=== PATIENT | male | born 1960 | race Caucasian/White ===

== ENCOUNTER 2023-12-23 09:43 | Day surgery (SDC) | payer OTHER, SELFPAY ==
[2023-12-21 12:49] VITALS: BMI 47.8
--- OUTSIDE RECORDS SUMMARY | 2023-12-23 09:46 | XMS_ITS | Continuity of Care Document ---
Author Organization [facility] Address [address] [place] [address]- Care Team Providers Care Medical Technologist Name Role Phone Leigh CYR, Ramón Maki Primary Care Physician [facility]counter [facility] Date(s): 05/19/23 - 06/18/23 [facility] [address] [place] [id number] Allergies, Adverse Reactions, Alerts No Known Allergies Immunizations Given and Recorded Vaccine Date Status Refusal Reason pneumococcal 20-valent conjugate vaccine 09/16/22 Given [id number] bivalent booster vax 08/18/22 Recorded influenza virus vaccine, inactivated 05/16/22 Raz rded influenza virus vaccine, inactivated 06/28/21 Raz rded SARS-CoV-2 (COVID-19) mRNA-1273 vaccine 07/16/21 R ecorded SARS-CoV-2 (COVID-19) mRNA BNT-162b2 vac 12/12/20 Recorded SARS-CoV-2 (COVID-19) mRNA BNT-162b2 vac 11/21/20 Recorded Influenza Virus Vaccine (oldterm) 06/23/20 Recorde d Influenza Virus Vaccine (oldterm) 05/26/20 Recorde d Influenza Virus Vaccine (oldterm) 05/25/20 Recorde d zoster vaccine, inactivated 05/26/20 Recorded zoster vaccine, inactivated 02/27/20 Recorded Medications amLODIPine 5 mg oral tablet 5 mg, 1, tablet, By Mouth, Daily, # 90 tablet, Refills 3, Tot. Refills 3, Maintenance, 07/14/22 10:17:00 EST, Route to Pharmacy Electronically, [facility]/pharmacy #[id number], Partial fill upon patient request if the prescription is for a schedule II opioid drug.... Start Date: 07/14/22 Status: Ordered atorvastatin 20 mg oral tablet 1 tablet, By Mouth, Daily, # 90 tablet, 3 Refills, 07/14/22 10:24:00 EST, [facility]/pharmacy #1234, 165, cm, 07/09/22 16:06:00 EST, Height, 143, kg, 01/06/21 17:45:00 EDT, Dry Weight Start Date: 07/14/22 Status: Ordered chlorthalidone 25 mg oral tablet 12.5 mg, 0.5, tablet, By Mouth, Daily, new dose/will call when needed, # 45 tablet, Refills 3, Tot.Refills 3, Maintenance, 05/15/23 15:39:00 EDT, Route to Pharmacy Electronically, [facility]/pharmacy #1234, 165, cm, 05/15/23 15:26:00 EDT, Height Start Date: 05/15/23 Status: Ordered Klor-Con M20 20 mEq oral tablet, extended release 2 tablet, By Mouth, Daily, will call, # 180 tablet, 3 Refills, 07/14/22 10:24:00 EST, [facility]/pharmacy #1234, 165, cm, 07/09/22 16:06:00 EST, Height, 143, kg, 01/06/21 17:45:00 EDT, Dry Weight Start Date: 07/14/22 Status: Ordered losartan 50 mg oral tablet 2 tablet = 100 mg, By Mouth, Daily, # 180 tablet, 3 Refills, Maintenance, 07/14/22 10:18:00 EST, [facility]/pharmacy #1234, Partial fill upon patient request if the prescription is for a schedule II opioid drug., 165, cm, 07/09/22 16:06:00 EST, Height, 143,... Start Date: 07/14/22 Status: Ordered metFORMIN 500 mg oral tablet, extended release 2 tablet = 1,000 mg, By Mouth, Daily, new dose/will call when needed, # 180 tablet, 3 Refills, Maintenance, 05/15/23 15:38:00 EDT, [facility]/pharmacy #1234, Partial fill upon patient request if the prescription is for a schedule II opioid drug., 165, cm, 10... Start Date: 05/15/23 Stop Date: 05/09/24 Status: Ordered omeprazole 40 mg oral enteric coated capsule 1 capsule = 40 mg, By Mouth, Daily, # 90 capsule, 3 Refills, Maintenance, 07/14/22 10:31:00 GT, Tabitha [facility]/pharmacy #1234, Partial fill upon patient request if the prescription is for a schedule II opioid drug., 165, cm, 07/09/22 16:06:00 EST, H... Start Date: 07/14/22 Status: Ordered Problem List Condition Confirmation Course Effective Dates Status Health Status Informant Benign essential hypertension Confirmed Active Diplopia Confirmed Active Pedal edema Confirmed Active GERD (gastroesophageal reflux disease) Confirmed Active Hypercholesterolemia Confirmed Active Obesity Confirmed Active Onychomycosis of toenails Confirmed Active Prediabetes Confirmed Active Detached retina Confirmed Active Right flank pain Confirmed Active Severe obesity Confirmed Active Steatosis of liver Confirmed Active Type 2 diabetes mellitus Confirmed Active Social History Social History Type Response Smoking Status Never smoker entered on: 07/18/15 Sex Patient Care team information Care Team Personnel Name: Leigh CYR, Ramón Maki Position: S Physician - Primary Care Member Role: PCP Address: Address: [address] [place] [address] [place] [address]- Care Team Related Persons Name: ADAN BRISCOE Address: [place] [address] [place] [address] Name: ADAN PILLAI Address: [address] [address] [address] [place] [address] Name: TAWANA PILLAI Address: [place] [address]
--- OUTSIDE RECORDS SUMMARY | 2023-12-23 09:46 | XMS_ITS | Continuity of Care Document ---
Author Organization [facility] ter Address [address] [place] [address]- Care Team Providers Care Bioinformatics Research Technician Name Role Phone Ramón Abraham MD Primary Care Physician Encounter [facility] [place] Date(s): 09/29/19 - 09/29/[address] [address]- [facility] Attending Physician: Ramón Abraham MD Allergies, Adverse Reactions, Alerts Substance Reaction Severity Status NKA Active Medications amLODIPine 2.5 mg oral tablet See Instructions, # 90 tablet, Refills 3 Tot. Refills 3, TAKE 1 TABLET BY MOUTH EVERYDAY AT BEDTIME, [facility]/pharmacy #[id number] Start Date: 04/27/19 Status: Ordered atorvastatin 20 mg oral tablet 1 tablet = 20 mg, By Mouth, Daily, # 90 tablet, 3 Refills, Maintenance, 08/03/19 15:50:00 EST, Tablet, [facility] #1234, 191, cm, 06/08/19 9:08:00 EDT, Height, 143, kg, 06/03/19 21:01:00 EDT, Dry Weight Start Date: 08/03/19 Status: Ordered Bactrim DS 800 mg-160 mg oral tablet 2 tablet, By Mouth, Every 12 hours, # 28 tablet, 0 Refills, Maintenance, 09/20/19 9:24:00 EST, [facility], 2 tablet By Mouth Every 12 hours, 191, cm, 09/20/19 9:02:00 EST, Height, 143, kg, 06/03/19 21:01:00 EDT, Dry Weight Start Date: 09/20/19 Status: Ordered cephalexin monohydrate 500 mg oral capsule 1 capsule = 500 mg, By Mouth, 4 times a day, # 28 capsule, 0 Refills, Maintenance, 09/20/19 9:25:00EST, [facility]/pharmacy #1234, 191, cm, 09/20/19 9:02:00 EST, Height, 143, kg, 06/03/19 21:01:00 EDT, DryWeight Start Date: 09/20/19 Status: Ordered chlorthalidone 25 mg oral tablet 25 mg, 1, tablet, By Mouth, Daily, # 90 tablet, Refills 0, Tot. Refills 0, Maintenance, 08/02/19 14:55:00 EST, Route to Pharmacy Electronically, [facility]/pharmacy #1234, 191, cm, 06/08/19 9:08:00 EDT, Height, 143, kg, 06/03/19 21:01:00 EDT, Dry Weight Start Date: 08/02/19 Status: Ordered doxycycline hyclate 100 mg oral capsule 1 capsule = 100 mg, By Mouth, 2 times a day, for 10 days, with food and probiotic, # 20 capsule, 0 Refills, Acute 10/04/19 13:14:00 EST, 09/24/19 13:14:00 EST, [facility]/pharmacy #1234, 191, cm, 09/21/19 12:10:00 EST, Height, 143, kg, 06/03/19 21:01:00 EDT,... Start Date: 09/24/19 Stop Date: 10/04/19 Status: Ordered losartan 100 mg oral tablet See Instructions, # 90 tablet, Refills 3 Tot. Refills 3, TAKE 1 TABLET DAILY., [facility]/pharmacy #1234 Start Date: 04/27/19 Status: Ordered Lotrimin AF 1% topical cream See Instructions, Topically 2 times a day entire undersurface and between toes of both feet, # 113 Gm, 1 Refills, Maintenance, 09/21/19 12:20:00 EST, [facility], Topically 2 times a day entire undersurface and between toes of both feet, 191, c... Start Date: 09/21/19 Status: Ordered omeprazole 20 mg oral enteric coated capsule 1 capsule = 20 mg, By Mouth, Daily, # 90 tablet, 3 Refills, Maintenance, 06/08/19 9:40:47 EDT, EC Capsule Start Date: 06/08/19 Status: Ordered omeprazole 40 mg oral enteric coated capsule 1 capsule = 40 mg, By Mouth, Daily, # 90 capsule, 0 Refills, Maintenance, 08/12/19 16:34:00 EST, ECCapsule, [facility], 191, cm, 08/12/19 15:49:00 EST, Height, 143, kg, 06/03/19 21:01:00 EDT, Dry Weight Start Date: 08/12/19 Stop Date: 09/11/19 Status: Ordered potassium chloride 20 mEq oral tablet, extended release 1 tablet = 20 mEq, By Mouth, Daily, # 90 tablet, 3 Refills, Maintenance, 09/29/19 17:46:00 EST, [facility], 191, cm, 09/29/19 10:59:00 EST, Height, 143, kg, 06/03/19 21:01:00 EDT, Dry Weight Start Date: 09/29/19 Status: Ordered Suprep Bowel Prep Kit oral liquid See Instructions, 177 mL By Mouth as per INS, # 354 mL, 0 Refills, Maintenance, 08/12/19 16:33:00 EST, [facility], 177 mL By Mouth as per INS, 191, cm, 08/12/19 15:49:00 EST, Height, 143, kg,06/03/19 21:01:00 EDT, Dry Weight Start Date: 08/12/19 Status: Ordered Problem List Condition Effective Dates Status Health Status Inform ant Benign essential hypertension(Confirmed) Active Pedal edema(Confirmed) Active GERD (gastroesophageal reflu x disease)(Confirmed) Active Hypercholesterolemia(Confirmed) Active Obesity(Confirmed) Active Onychomycosis of toenails(Confirmed) Active Prediabetes(Confirmed) Active Right flank pain(Confirmed) Active Steatosis of liver(Confirmed) Active Social History Social History Type Response Smoking Status Never smoker entered on: 07/18/15 Sex
--- OUTSIDE RECORDS SUMMARY | 2023-12-23 09:46 | XMS_ITS | Continuity of Care Document ---
Author Organization [facility] ter Address [address] [place] [address]- Care Team Providers Care Marketing Education Teacher Name Role Phone Leigh CYR, Ramón Maki Primary Care Physician [facility] Date[facility]s): 09/25/22 - 10/25/[address] [address] Attending Physician: AdmtrLisa Admitting Physician: AdmtrLisa Referring Physician: Admtr, Ar8 Allergies, Adverse Reactions, Alerts No Known Allergies Immunizations Given and Recorded Vaccine Date Status Refusal Reason pneumococcal 20-valent conjugate vaccine 09/16/22 Given [id number] bivalent booster vax 08/18/22 Recorded influenza virus [...] 07/14/22 10:17:00 EST, Route to Pharmacy Electronically, [facility]/pharmacy #1234, Partial fill upon patient request if the prescription is for a schedule II opioid drug.... Start Date: 07/14/22 Status: Ordered atorvastatin 20 mg oral tablet 1 tablet, By Mouth, Daily, # 90 tablet, 3 Refills, 07/14/22 10:24:00 EST, [facility]/pharmacy #1234, 165, cm, 07/09/22 16:06:00 EST, Height, 143, kg, 01/06/21 17:45:00 EDT, Dry Weight Start Date: 07/14/22 Status: Ordered chlorthalidone 25 mg oral tablet 1, tablet, By Mouth, Daily, # 90 tablet, Refills 3, Tot. Refills 3, Maintenance, 07/14/22 10:24:00 EST, Route to Pharmacy Electronically, [facility]/pharmacy #1234, 165, cm, 07/09/22 16:06:00 EST, Height, 143, kg, 01/06/21 17:45:00 EDT, Dry Weight Start Date: 07/14/22 Status: Ordered Klor-Con M20 20 mEq oral tablet, extended release 2 tablet, By Mouth, Daily, will call, # 180 tablet, 3 Refills, 07/14/22 10:24:00 EST, [facility]/pharmacy #1234, 165, cm, 07/09/22 16:06:00 EST, Height, 143, kg, 01/06/21 17:45:00 EDT, Dry Weight Start Date: 07/14/22 Status: Ordered losartan 50 mg oral tablet 2 tablet = 100 mg, By Mouth, Daily, # 180 tablet, 3 Refills, Maintenance, 07/14/22 10:18:00 EST, [facility]/pharmacy #1234, Partial fill upon patient request if the prescription is for a schedule II opioid drug., 165, cm, 07/09/22 16:06:00 EST, Height, 143,... Start Date: 07/14/22 Status: Ordered Lotrimin AF 1% topical cream See Instructions, Topically 2 times a day entire undersurface and between toes of both feet, # 113 Gm, 1 Refills, Maintenance, 09/21/19 12:20:00 EST, [facility]/pharmacy #1234, Topically 2 times a day entire undersurface and between toes of both feet, 191, c... Start Date: 09/21/19 Status: Ordered metFORMIN 500 mg oral tablet, extended release See Instructions, 1 tablet /day and every week increase by 1 tablet until you reach target dose of 4 tablets/d with evening meal, # 360 each, 3 Refills, Maintenance, 07/14/22 10:21:00 EST, [facility]/pharmacy #1234, Partial fill upon patient request if the... Start Date: 07/14/22 Status: Ordered omeprazole 40 mg oral enteric coated capsule 1 capsule = 40 mg, By Mouth, Daily, # 90 capsule, 3 Refills, Maintenance, 07/14/22 10:31:00 EST, ECCapsule, [facility], Partial fill upon patient request if [...] Care team information Care Team Personnel Name: Ramón Abraham MD Position: [facility] Primary Care Physician Member Role: PCP Address: Address: [address] [place] [address]- Care Team Related Persons Name: ADAN BRISCOE Address: [address] [place] [address] Name: ADAN PILLAI Address: [place] [address] [place] [address] Name: TAWANA PILLAI Address: [place] [address]
--- OUTSIDE RECORDS SUMMARY | 2023-12-23 09:46 | XMS_ITS | Continuity of Care Document ---
Author Organization [facility] ter Address [address] [place] [address]- Care Team Providers Care Management Development Specialist Name Role Phone Ramón Abraham MD Primary Care Physician Encounter [facility] Date(s): 09/20/19 - 09/20/[address] [address]- [facility] Attending Physician: Ramón Abraham MD Allergies, Adverse [...] 28 capsule, 0 Refills, Maintenance, 09/20/19 9:25:00EST, [facility]/pharmacy #1234, 191, cm, 09/20/19 9:02:00 EST, Height, 143, kg, 06/03/19 21:01:00 EDT, DryWeight Start Date: 09/20/19 Status: Ordered chlorthalidone 25 mg oral tablet 25 mg, 1, tablet, By Mouth, Daily, # 90 tablet, Refills 0, Tot. Refills 0, Maintenance, 08/02/19 14:55:00 EST, Route to Pharmacy Electronically, [facility]/pharmacy #1234, 191, cm, 06/08/19 9:08:00 EDT, Height, 143, kg, 06/03/19 21:01:00 EDT, Dry Weight Start Date: 08/02/19 Status: Ordered Keflex monohydrate 500 mg oral capsule 1 capsule = 500 mg, By Mouth, 4 times a day, # 40 capsule, 0 Refills, Maintenance, 06/04/19 0:24:32EDT Start Date: 06/04/19 Stop Date: 06/14/19 Status: Ordered losartan 100 mg oral tablet See Instructions, # 90 tablet, Refills 3 Tot. Refills 3, TAKE 1 TABLET DAILY., [facility]/pharmacy #1234 Start Date: 04/27/19 Status: Ordered omeprazole 20 mg oral enteric coated capsule 1 capsule = 20 mg, By Mouth, Daily, # 90 tablet, 3 Refills, Maintenance, 06/08/19 9:40:47 EDT, EC Capsule Start Date: 06/08/19 Status: Ordered omeprazole 40 mg oral enteric coated capsule 1 capsule = 40 mg, By Mouth, Daily, # 90 capsule, 0 Refills, Maintenance, 08/12/19 16:34:00 EST, ECCapsule, [facility]/pharmacy #1234, 191, cm, 08/12/19 15:49:00 EST, Height, 143, kg, 06/03/19 21:01:00 EDT, Dry Weight Start Date: 08/12/19 Stop Date: 09/11/19 Status: Ordered potassium chloride 20 mEq oral tablet, extended release 1 tablet = 20 mEq, By Mouth, Daily, # 30 tablet, 0 Refills, Maintenance, 09/20/19 12:43:00 EST, [facility], 191, cm, 09/20/19 9:02:00 EST, Height, 143, kg, 06/03/19 21:01:00 EDT, Dry Weight Start Date: 09/20/19 Status: Ordered Suprep Bowel Prep Kit oral [...]
[2023-12-23 10:43] VITALS: BMI 36.2
[2023-12-23 12:00] VITALS: BP 149/84; PULSE 90; RESP 16; TEMP 37; O2SAT 98
[2023-12-23 12:10] LABS: Glucose, Whole Blood 115 mg/dL (60-115)
--- NOTE | 2023-12-23 14:05 | HO.ANESPROP2 ---
HPI - Anesthesia Eval Consult details Narrative: 63 to M presenting for bilateral eye muscle surgery. Diabetic - diet-controlled. POC 115 today. [facility] Past Medical History Medical History Type 2 diabetes mellitus Steatosis of liver Prediabetes Pedal edema Obesity Hypercholesterolemia GERD (gastroesophageal reflux disease) Diplopia HTN (hypertension) Family History Family history of problems with anesthesia: No Surgical History Surgical History Hx of hand surgery Hx of detached retina repair History of Problems with Anesthesia: No Social History Social History Patient Tobacco Use Status: Never used Tobacco Use of substances other than those prescribed or required for medical reasons: No Are you DNR?: No Advance Directives: No Advance Directives Information Provided: Yes Meds Allergies Allergy/AdvReac Type Severity Reaction Status Date / Time No Known Allergies Allergy Unverified 12/22/23 10:07 Home Medications ?Medication ?Instructions ?Recorded ?Confirmed ?Last Taken ?Type amlodipine 5 mg tablet 5 mg PO DAILY 12/21/23 12/23/23 12/22/23 History atorvastatin 20 mg tablet 20 mg PO DAILY 12/21/23 12/23/23 12/22/23 History losartan 50 mg tablet 50 mg PO DAILY 12/21/23 12/23/23 12/22/23 History omeprazole 20 mg capsule,delayed 20 mg PO DAILY 12/21/23 12/23/23 12/22/23 History release Exam Exam Date and Time: December 23, 2023 1330 Height,Weight and Vital Signs: Height 6 ft 3 in Weight 131.542 kg Last Vital Signs Temp 98.6 F 12/23/23 12:00 Pulse 90 12/23/23 12:00 Resp 16 12/23/23 12:00 BP 149/84 H 12/23/23 12:00 Pulse Ox 98 12/23/23 12:00 O2 Del Method Room Air 12/23/23 12:00 Pertinent Lab Results Pertinent Lab Results: Laboratory Tests 12/23/23 12:03 POC Glucose 115 Airway Mallampati Class: II TM Dist: >3cm Neck ROM: Limited Loose/Missing/Broken Teeth: No (patient reports no loose or broken teeth) Heart: S1S2 Lungs: CTAB Assessment and Plan Assessment Anesthesia Assessment: Anesthesia Plan Discussed and Chart Reviewed Final Anesthetic Review Family History of Problems with Anesthesia: No History of Problems with Anesthesia: No NPO: Yes ASA Class: III Final Preanesthetic Review: No Changes in Pt Med Stat, Meds/Allgs Chart Reviewed, Consent Obtained/Reviewed and Anes Risks/Benef Reviewed Patient Risk: Intermediate Procedure Risk: Low Anesthetic Plan Anesthetic Plan: GA and Agree w/ Assess. and Plan Disposition: Standard PACU
[2023-12-23 14:55] VITALS: BP 121/69; PULSE 69; RESP 16; TEMP 36.6; O2SAT 97
[2023-12-23 15:00] VITALS: BP 114/75; PULSE 78; RESP 16; O2SAT 94
--- NOTE | 2023-12-23 15:02 | HO.OPHTHAL ---
Ophthalmology Operative Note Date of Service: 12/23/23 Narrative: Diagnoses 1 exotropia 2. Right hypertropia. Procedures 1. Bilateral lateral rectus recessions of 8 mm 2. Recession of left inferior rectus [address] Moreira. Anesthesia general. Complications none. The patient was brought to the operative room placed under general anesthesia. The eyes were prepped and draped in the usual sterile ophthalmic fashion. A lid speculum was placed in the right eye and incisions made at bare sclera in the inferotemporal fornix. The lateral rectus muscle was hooked and secured with a double-armed Vicryl suture. It was disinserted the globe and reattached to a position 8 mm behind the original insertion. Conjunctiva was closed with interrupted Vicryl sutures. An identical procedure was then performed on the left eye. An incision was then made down to bare sclera in the inferotemporal fornix of the left eye. The inferior rectus muscle was hooked and secured with a double-armed Vicryl suture. It was disinserted from the globe and reattached to a position 2 mm behind the original insertion. Conjunctiva was closed with interrupted Vicryl sutures. The patient was then awoken from general anesthesia and discharged to postoperative recovery in good condition.
[2023-12-23 15:05] VITALS: BP 122/72; PULSE 77; RESP 16; O2SAT 94
[2023-12-23 15:10] VITALS: BP 112/58; PULSE 70; RESP 16; TEMP 36.6; O2SAT 94
[2023-12-23 15:25] VITALS: BP 128/67; PULSE 66; RESP 20; TEMP 36.6; O2SAT 94
== END 2023-12-23 15:36 | disposition home or self-care (01) ==
PROVIDERS: PCP Internal Medicine; Visit Provider Ophthalmology
PROC: (CPT 67311; principal; 2023-12-23 12:20)
DX: H50.15 Alternating exotropia (principal); H50.21 Vertical strabismus, right eye; H53.2 Diplopia; I10 Essential (primary) hypertension; K76.0 Fatty (change of) liver, not elsewhere classified; E11.9 Type 2 diabetes mellitus without complications; Z79.84 Long term (current) use of oral hypoglycemic drugs; Z79.899 Other long term (current) drug therapy; Z56.0 Unemployment, unspecified
CPT/HCPCS: 67311; 67314; 82947; J1100; J1596; J1885; J2405; J2704; J3010

== ENCOUNTER 2024-03-23 10:50 | Day surgery (SDC) | payer OTHER, SELFPAY ==
[2024-03-18 11:41] VITALS: BMI 46.9
--- NOTE | 2024-03-22 11:10 | P.CONAN_ITS ---
Documented by User: Sarah Wolfe NP 03/22/24 11:10 HPI - Anesthesia Eval Consult details Narrative: 63yo M for Left Removal of Conjuctiva Medically optimized per [facility] Past Medical History Medical History Type 2 diabetes mellitus Steatosis of liver Prediabetes Pedal edema Obesity Hypercholesterolemia GERD (gastroesophageal reflux disease) Diplopia HTN (hypertension) Family History Family history of problems with anesthesia: No Surgical History Surgical History Hx of non-cataract eye surgery (12/23/23) Hx of hand surgery Hx of detached retina repair History of Problems with Anesthesia: No Social History Social History Household Members: Spouse Housing: House Patient Tobacco Use Status: Never used Tobacco e-Cigarette/Vaping Use: Never Used Use of substances other than those prescribed or required for medical reasons: No Are you DNR?: No Advance Directives: No Advance Directives Information Provided: Yes Meds Allergies Allergy/AdvReac Type Severity Reaction Status Date / Time No Known Allergies Allergy Verified 03/23/24 12:50 Home Medications ?Medication ?Instructions ?Recorded ?Confirmed ?Last Taken ?Type atorvastatin 20 mg tablet 20 mg PO DAILY 12/21/23 03/23/24 12/22/23 History losartan 50 mg tablet 50 mg PO DAILY 12/21/23 03/23/24 12/22/23 History omeprazole 20 mg capsule,delayed 40 mg PO DAILY 12/21/23 03/23/24 12/22/23 History release chlorthalidone 25 mg tablet 12.5 mg PO DAILY PRN Edema 03/18/24 03/23/24 Unknown History Exam Height,Weight and Vital Signs: Height 5 ft 4.96 in Weight 127.7 kg Assessment and Plan Assessment Anesthesia Assessment: Chart Reviewed Final Anesthetic Review Family History of Problems with Anesthesia: No History of Problems with Anesthesia: No Documented by User: Sakina Prieto MD 03/23/24 14:44 PMFSH Past Medical History Medical History Type 2 diabetes mellitus Steatosis of liver Prediabetes Pedal edema Obesity Hypercholesterolemia GERD (gastroesophageal reflux disease) Diplopia HTN (hypertension) Surgical History Surgical History Hx of non-cataract eye surgery (12/23/23) Hx of hand surgery Hx of detached retina repair Social History Social History Household Members: Spouse Housing: House Patient Tobacco Use Status: Never used Tobacco e-Cigarette/Vaping Use: Never Used Use of substances other than those prescribed or required for medical reasons: No Are you DNR?: No Advance Directives: No Advance Directives Information Provided: Yes Meds Allergies Allergy/AdvReac Type Severity Reaction Status Date / Time No Known Allergies Allergy Verified 03/23/24 12:50 Home Medications ?Medication ?Instructions ?Recorded ?Confirmed ?Last Taken ?Type atorvastatin 20 mg tablet 20 mg PO DAILY 12/21/23 03/23/24 12/22/23 History losartan 50 mg tablet 50 mg PO DAILY 12/21/23 03/23/24 12/22/23 History omeprazole 20 mg capsule,delayed 40 mg PO DAILY 12/21/23 03/23/24 12/22/23 History release chlorthalidone 25 mg tablet 12.5 mg PO DAILY PRN Edema 03/18/24 03/23/24 Unknown History Exam Airway Mallampati Class: III TM Dist: >3cm Neck ROM: Full Loose/Missing/Broken Teeth: No Heart: RRR Lungs: CTA Assessment and Plan Assessment Anesthesia Assessment: Anesthesia Plan Discussed Final Anesthetic Review NPO: Yes ASA Class: II Final Preanesthetic Review: Meds/Allgs Chart Reviewed, Consent Obtained/Reviewed and Anes Risks/Benef Reviewed Patient Risk: Low Procedure Risk: Low Anesthetic Plan Anesthetic Plan: GA Disposition: Standard PACU
[2024-03-23 12:51] VITALS: BMI 35.9
[2024-03-23 12:53] VITALS: BP 151/91; PULSE 88; RESP 18; TEMP 37.2; O2SAT 96
[2024-03-23 13:05] LABS: Glucose, Whole Blood 121 mg/dL (60-115)
[2024-03-23] MEDS: Lactated Ringers 1,000 ML 100 ML IVCONT (13:13)
--- NOTE | 2024-03-23 15:10 | HO.OPHTHAL ---
Ophthalmology Operative Note Date of Service: 03/23/24 Narrative: Diagnosis pyogenic granuloma left eye. Procedure excisional biopsy of pyogenic granuloma left eye. Surgeon Dr. Moreira. Anesthesia general. Complications none. The patient was brought the operating room placed under general anesthesia. The left eye was prepped and draped in the usual sterile ophthalmic fashion. A lid speculum was placed in the eye and cautery was used to circumscribe the mass in the left lower quadrant. The mass was removed with forceps and Christian scissors and hemostasis was achieved with cautery. The mass was sent to pathology for examination and Maxitrol ointment was placed in the eye. The patient was awoken from general anesthesia and discharged to postoperative recovery in good condition.
[2024-03-23 15:15] VITALS: BP 125/80; PULSE 76; RESP 18; TEMP 37.1; O2SAT 97
[2024-03-23 15:20] VITALS: BP 138/80; PULSE 78; RESP 18; O2SAT 94
[2024-03-23 15:25] VITALS: BP 125/78; PULSE 89; RESP 18; O2SAT 95
[2024-03-23] MEDS: Tetracaine HCl/PF 0.5% Oph Sol 4 ML DROPS 1 DROP EYE-BOTH (15:25)
[2024-03-23 15:30] VITALS: BP 139/83; PULSE 83; RESP 18; O2SAT 95
[2024-03-23] MEDS: Acetaminophen 325 MG TABLET 650 MG PO (15:30)
[2024-03-23 15:45] VITALS: BP 141/83; PULSE 76; RESP 18; TEMP 36.8; O2SAT 96
== END 2024-03-23 16:12 | disposition home or self-care (01) ==
PROVIDERS: PCP Internal Medicine; Visit Provider Ophthalmology
PROC: (CPT 68110; principal; 2024-03-23 12:50)
DX: L98.0 Pyogenic granuloma (principal); E11.9 Type 2 diabetes mellitus without complications; I10 Essential (primary) hypertension; E78.00 Pure hypercholesterolemia, unspecified; K21.9 Gastro-esophageal reflux disease without esophagitis; E66.9 Obesity, unspecified; Z68.42 Body mass index [BMI] 45.0-49.9, adult; Z79.02 Long term (current) use of antithrombotics/antiplatelets; Z79.899 Other long term (current) drug therapy
CPT/HCPCS: 68110; 82947; 88304; J2250; J2704; J3010